=== PATIENT | female | born 1995 | race Caucasian/White ===

== ENCOUNTER 2017-05-05 05:09 | Inpatient (IN) | payer OTHER ==
[~2017-05-05] VITALS: Ht 160 cm; Wt 65.8 kg
[~2017-05-05 05:09] MED LIST: Motrin PO; PRENATAL TABLE1 EAC3 PO; Percocet 5/325,Endoc PO; ZUBSOLV 8.6-2.1 EACH SL
[2017-05-05 05:54] LABS: BASOPHIL (%) 0.2 % (0-1); EOSINOPHIL (%) 0.8 % (0-5); EOSINOPHIL COUNT 0.1 K/uL (0-0.3); HEMATOCRIT 36.2 % (36.0-46.0); HEMOGLOBIN 12.2 G/DL (11.9-15.5); IMMATURE GRANULOCYTE (%) 0.5 % (0.0-0.7); LYMPHOCYTE (%) 21.6 % (15-42); LYMPHOCYTE COUNT 2.6 K/uL (1.0-2.8); MCHC 33.7 G/DL (30.0-36.0); MCV 92.1 FL (83-99); MONOCYTE (%) 8.4 % (3-12); NEUTROPHIL (%) 68.5 % (45-76); NEUTROPHIL COUNT 8.3 K/uL (1.8-6.4); PLATELET COUNT 178 K/uL (156-360); RBC DIS.WIDTH-CV 12.6 % (11.8-14.6); RBC DIS.WIDTH-SD 42.8 % (39-53); RED BLOOD COUNT 3.93 M/uL (3.80-5.20); WHITE BLOOD COUNT 12.1 K/uL (4.1-10.2)
[2017-05-05 06:13] VITALS: BP 124/74
[2017-05-05 10:27] VITALS: BP 125/84
[2017-05-05 11:30] VITALS: BP 130/82
[2017-05-05 13:30] VITALS: BP 122/75
[2017-05-05 15:30] VITALS: BP 103/58
[2017-05-05 18:30] VITALS: BP 115/57
[2017-05-05 19:05] LABS: AMPHETAMINE NEGATIVE (500 ng/mL); BARBITURATES NEGATIVE (200 ng/mL); BENZODIAZEPINES NEGATIVE (150 ng/mL); BUPRENORPHINE NEGATIVE (10 ng/mL); COCAINE NEGATIVE (150 ng/mL); METHADONE NEGATIVE (200 ng/mL); METHAMPHETAMINE NEGATIVE (500 ng/mL); OPIATES (MORPHINE) PRESUMPTIVE POSITIVE (100 ng/mL); OXYCODONE PRESUMPTIVE POSITIVE (100 ng/mL); PHENCYCLIDINE NEGATIVE (25 ng/mL); PROPOXYPHENE NEGATIVE (300 ng/mL); THC CANNABINOIDS NEGATIVE (50 ng/mL); TRICYCLIC ANTIDEPRESSANTS NEGATIVE (300 ng/mL)
[2017-05-06 07:04] LABS: BASOPHIL (%) 0.3 % (0-1); EOSINOPHIL COUNT 0.1 K/uL (0-0.3); HEMOGLOBIN 10.5 G/DL (11.9-15.5); IMMATURE GRANULOCYTE (%) 0.4 % (0.0-0.7); LYMPHOCYTE (%) 15.1 % (15-42); LYMPHOCYTE COUNT 1.7 K/uL (1.0-2.8); MCHC 33.9 G/DL (30.0-36.0); MCV 94.5 FL (83-99); MONOCYTE (%) 12.7 % (3-12); MONOCYTE COUNT 1.5 K/uL (0-0.8); NEUTROPHIL (%) 70.5 % (45-76); NEUTROPHIL COUNT 8.2 K/uL (1.8-6.4); PLATELET COUNT 129 K/uL (156-360); RBC DIS.WIDTH-SD 44.7 % (39-53); RED BLOOD COUNT 3.28 M/uL (3.80-5.20); WHITE BLOOD COUNT 11.6 K/uL (4.1-10.2)
[2017-05-07 22:51] VITALS: BP 122/67
[2017-05-08 07:48] VITALS: BP 129/78
[2017-05-08 15:21] VITALS: BP 128/84
[2017-05-08 23:29] VITALS: BP 123/77
[2017-05-09] MEDS ORDERED: ENDOCET 5-3251 EACH PO (09:09)
[2017-05-09] MEDS ORDERED: IBUPROFEN800 MG PO (09:09)
== END 2017-05-09 17:30 | disposition home or self-care (01) | DRG 765 ==
LOC: 2WEST 05:09 → 2SOUTH 09:57 → 2WEST 05-09 17:30
PROVIDERS: Obstetrics & Gynecology; Obstetrics & Gynecology Obstetrics
DX: O34.211 Maternal care for low transverse scar from previous cesarean delivery (principal); O99.03 Anemia complicating the puerperium; D62 Acute posthemorrhagic anemia; O99.324 Drug use complicating childbirth; F11.10 Opioid abuse, uncomplicated; O99.214 Obesity complicating childbirth; E66.9 Obesity, unspecified; O99.334 Smoking (tobacco) complicating childbirth; F17.200 Nicotine dependence, unspecified, uncomplicated; Z30.2 Encounter for sterilization; Z3A.39 39 weeks gestation of pregnancy; Z37.0 Single live birth; Z68.26 Body mass index [BMI] 26.0-26.9, adult
CPT/HCPCS: 84999; 85025; 86850; 86900; 86901; 88302; 88307; J0131; J0690; J1170; J1885; J2274; J2405; J2590; J3010; J7120